=== PATIENT | male | born 1980 | race Caucasian/White ===

== ENCOUNTER 2023-02-08 15:49 | Emergency (ER) | payer OTHER, SELFPAY ==
--- NOTE | ~2023-02-08 | CT_ITS ---
EXAMINATION: CT abdomen pelvis wo con DATE: 02/08/2023 16:51 INDICATION: Right flank pain, right lower quadrant pain and dysuria. Elevated lipase. TECHNIQUE: Computed tomography (CT) of the abdomen and pelvis was performed without intravenous contr ast. Automated exposure control and iterative reconstruction technique were employed. The dose-length product was 986.10 mGy-cm. COMPARISON: None FINDINGS: Lung bases are clear. Heart size is normal. No pericardial or pleural effusion. Small amount of focal hepatic steatosis at the ligamentum teres. Gallbladder, spleen, pancreas, bilateral adrenal glands a nd left kidney are normal. No left-sided urolithiasis. There is 304 mm stone at the right ureterovesi cular junction with mild right hydroureter without hydronephrosis. Bowels including the appendix are normal. Partially decompressed bladder is unremarkable. No free intraperitoneal gas or fluid. No path ologically enlarged abdominal or pelvic lymphadenopathy. Moderate-sized bilateral fat-containing ingu inal hernias. Mild degenerative skeletal changes in the spine and at both hips. IMPRESSION: 1. Thousand 4 mm stone at the right ureterovesicular junction with mild right hydroureter but without hydronephrosis. 2. Moderate-sized bilateral fat-containing inguinal hernias. Reviewed, dictated and finalized at location A. IMPRESSION: 1. Thousand 4 mm stone at the right ureterovesicular junction with mild right h ydroureter but without hydronephrosis. 2. Moderate-sized bilateral fat-containing inguinal hernias.
--- NOTE | ~2023-02-08 | XR_ITS ---
EXAM: XR abdomen/kub 1V DATE: 02/08/2023 17:50 HISTORY: 3-4mm R UVJ stone . COMPARISON: CT abdomen and pelvis, same date. FINDINGS: Clear lung bases. Normal bowel gas pattern. No organomegaly. 4 mm calcification along the right lateral aspect of the urinary bladder likely corresponding to the previously detected stone. Re gional bones and soft tissues normal for age. IMPRESSION: 4 mm right distal ureteral/UVJ stone. Reviewed, dictated and finalized at location K.
[2023-02-08 15:54] VITALS: BP 160/93; PULSE 79; RESP 20; TEMP 36.3; O2SAT 99
[2023-02-08 16:25] LABS: Basophils Percent Auto 0.4 % (0.2-1.2); Eosinophils Absolute Auto 0.1 K/mm3 (0-0.3); Eosinophils Percent Auto 1.1 % (0-4.4); Hematocrit 42.9 % (42.0-52.0); Hemoglobin 14.4 g/dL (14.0-18.0); Immature Granulocyte Absolute 0.03 K/mm3 (0.00-0.031); Immature Granulocyte Percent A 0.3 % (0-0.5); Lymphocytes Absolute Auto 2.42 K/mm3 (0.9-3.2); Lymphocytes Percent Auto 23.6 % (18.3-44.2); Mean Corpuscular HGB Conc 33.6 g/dl (32-36); Mean Corpuscular Hemoglobin 31.1 pg (26-34); Mean Corpuscular Volume 92.7 fl (80-100); Mean Platelet Volume 9.8 fl (7.4-10.4); Monocytes Absolute Auto 0.5 K/mm3 (0.1-0.6); Neutrophils Absolute Auto 7.2 K/mm3 (1.3-6.7); Neutrophils Percent Auto 69.6 % (45.5-73.1); Platelet Count Result 266 k/mm3 (150-375); Red Blood Count 4.63 M/mm3 (4.6-6.20); Red Cell Distribution Width 12.8 % (11.5-14.5); White Blood Count 10.3 K/mm3 (4.5-10.0)
[2023-02-08 16:34] LABS: Alanine Aminotransferase 36 U/L (6-50); Anion Gap 9 mmol/L (8-16); Aspartate Amino Transferase 34 U/L (17-59); Bilirubin,Total 0.8 mg/dL (0.2-1.3); Blood Urea Nitrogen 21 mg/dL (9-20); Calcium 9.2 mg/dL (8.4-10.2); Carbon Dioxide 29 mmol/L (22-30); Chloride 101 mmol/L (98-107); Estimated CRCL calculation 128 ml/min; Estimated Glomerular Filt Rate > 60; Glucose 102 mg/dL (65-110); Potassium 3.4 mmol/L (3.4-5.0); Sodium 139 mmol/L (137-145)
[2023-02-08 16:35] LABS: Albumin Level 4.5 g/dL (3.5-5.1); Alkaline Phosphatase 106 U/L (38-126); Lipase 401 U/L (23-300)
[2023-02-08 16:35] LABS: Appearance Urine Clear (Clear); Bilirubin Urine Negative (Negative); Blood Urine Negative (Negative); Color Urine Yellow (Yellow); Glucose Urine UA Negative (Negative); Ketones Urine Negative (Negative); Leukocyte Esterase Ur Negative LEU/UL (Negative); Nitrate Urine Negative (Negative); Protein Urine Negative (Negative); Specific Grav Ur 1.023 (1.001-1.035); pH Urine 5.5 (5.0-9.0)
[2023-02-08 16:37] LABS: Add Urine Microscopic? NO
--- NOTE | 2023-02-08 16:46 | ED.ABDPAIN ---
HPI - Abdominal Pain General Chief Complaint: Abdominal Pain Stated Complaint: flank Time Seen by Provider: 02/08/23 16:03 Source: patient Mode of arrival: ambulatory Limitations: no limitations History of Present Illness HPI narrative: Patient is a 43-year-old male who presents to the ED with report of right flank pain. Patient reports the pain began last night around 5 PM and was constant and severe until he was able to fall asleep around 11 PM. Patient states he has had similar pain in the past, however last night's episode was much more severe. Pain radiated around to his right sided abdomen and down to his right groin. Patient reported having nausea and vomiting associated with the pain, as well as difficulty urinating/dysuria. He states he was unable to urinate normally until this morning. He denies having any flank or abdominal pain today. Denies any testicular pain or swelling. Denied any hematuria, chest pain, shortness of breath, fevers. Denies known history of kidney stones, but does report family history of this. Related Data Allergies Allergy/AdvReac Type Severity Reaction Status Date / Time No Known Allergies Allergy Verified 02/08/23 15:56 Review of Systems Review of Systems: CONSTITUTIONAL: Denies fever, chills, or sweats. CARDIOVASCULAR: Denies chest pain. RESPIRATORY: Denies dyspnea. GASTROINTESTINAL: See HPI. GENITOURINARY: See HPI. MUSCULOSKELETAL: See HPI. NEUROLOGIC: Denies headache, numbness, or weakness. All systems reviewed & are unremarkable except as noted in HPI and below Exam Narrative: GENERAL: Well appearing, obese with BMI of 30.4, non-toxic, in no acute distress. HEAD: Normocephalic, atraumatic. NECK: Supple. No adenopathy, no masses. RESPIRATORY: Airway patent, respirations nonlabored. Clear to auscultation bilaterally, no rales, rhonchi, wheezing. CARDIOVASCULAR: Regular rate and rhythm without murmurs, rubs, or gallops. Peripheral pulses 2+ and equal bilaterally. ABDOMINAL: Soft, no significant tenderness throughout abdomen, nondistended, no hepatosplenomegaly. Normoactive BS. No CVA tenderness to percussion. MUSCULOSKELETAL: Moves all extremities. Strength/ROM intact without gross deformities. Very mild tenderness to right lumbosacral region. SKIN: Warm, dry, normal color. No rashes. NEURO: A&O X3. Speech clear. Cranial nerves II-XII grossly intact. Steady gait. No ataxic movements. PSYCHIATRIC: Appropriate mood and affect. Normal interaction. Course Vital Signs Vital signs: Vital Signs Temperature 97.3 F L 02/08/23 15:54 Pulse Rate 79 02/08/23 15:54 Respiratory Rate 20 02/08/23 15:54 Blood Pressure 160/93 H 02/08/23 15:54 Pulse Oximetry 99 02/08/23 15:54 Oxygen Delivery Room Air 02/08/23 15:54 Temperature 97.3 F L 02/08/23 15:54 Pulse Rate 79 02/08/23 15:54 Respiratory Rate 20 02/08/23 15:54 Blood Pressure 160/93 H 02/08/23 15:54 Pulse Oximetry 99 02/08/23 15:54 Oxygen Delivery Room Air 02/08/23 15:54 MDM - Abdominal Pain MDM Narrative Medical decision making narrative: Patient presented to ED with episode of right flank and right-sided abdominal pain that occurred last night, improved today. Asymptomatic by the time of my evaluation. Vitals stable. CBC with leukocytosis of 10.3, otherwise unremarkable. CMP unremarkable. Stable kidney function. Lipase minimally elevated at 401. Patient given 1L of fluids. Urine without signs of hematuria or infection. CT scan of abdomen pelvis obtained and showing 3 to 4 mm right UVJ stone with mild right hydroureter, no hydronephrosis. Also showed adalid fat-containing inguinal hernias. No comment on pancreatitis. Patient denies any upper abdominal pain. He denies previous history of pancreatitis. He does not drink alcohol. Denies any groin pain or bulges. KUB obtained and visualized stone. Patient was updated on imaging findings and plan for discharge home with outpatient urology
[2023-02-08] MEDS: SODIUM CHLORIDE 0.9% IV 1,000 ML 999 ML IV CONT (17:25)
[2023-02-08] MEDS: TAMSULOSIN HCL 0.4 MG CAPSULE PO (18:16)
[2023-02-08 18:29] VITALS: BP 165/105; PULSE 57
== END 2023-02-08 18:37 | disposition home or self-care (01) ==
PROVIDERS: Emergency Provider Physician Assistant
DX: N20.1 Calculus of ureter (principal); N13.4 Hydroureter; K40.20 Bilateral inguinal hernia, without obstruction or gangrene, not specified as recurrent
CPT/HCPCS: 36415; 74018; 74176; 80053; 81003; 83690; 85025; 96360; 99284; A9270; J7030

== ENCOUNTER → 2023-02-21 14:29 | Outpatient (CLI) | payer OTHER, SELFPAY ==
--- NOTE | ~2023-02-21 | XR_ITS ---
EXAMINATION: XR abdomen/kub 1V INDICATION: Right ureteral stone follow-up TECHNIQUE: Supine views of the abdomen were obtained on 2 radiographs. COMPARISON: 02/08/2023 FINDINGS: There is a 4 mm calcification at the expected location of the right ureterovesicular juncti on. The bowel gas pattern is normal. The lung bases are clear. IMPRESSION: 1. Possible persistent right ureterovesicular junction stone. Reviewed, dictated and finalized at location B.
== END ==
PROVIDERS: PCP Urology; Visit Provider Urology
DX: N20.1 Calculus of ureter (principal)
CPT/HCPCS: 74018

== ENCOUNTER 2023-03-01 02:39 | Day surgery (SDC) | payer OTHER, SELFPAY ==
--- NOTE | 2023-02-26 13:52 | PC.NURSE ---
Report to the Outpatient Waiting Room, entrance under the green pavilion located off [facility], at time 1100 on date 03/01/23. Planned Procedure Time: 1300. Time changes happen often and if your time is changed the preop area will call you the afternoon before. - You and your visitor will be asked to self-screen and do not enter if you have any COVID symptoms. - A mask is optional within the hospital at this time. Patients may have clear liquids (water, carbonated beverages, clear teas, apple juice) until 3 hours prior to surgery with a maximum of 20 ounces. 1000 - No food from midnight until time of surgery - Infants may have breast milk until 4 hours before surgery, formula 6 hours prior to surgery. - Children will be allowed to drink immediately following surgery. If applicable, please bring a bottle or sippy cup to assist with drinking. Juice, water, soda, and popsicles are readily available. For infants on formula, please bring formula the day of surgery. Pacifiers are allowed. Take the following medications with a SIP of water the morning of surgery: none DO NOT STOP ANY OF YOUR OTHER PRESCRIPTION MEDICATIONS PRIOR TO SURGERY ?EXCEPT THE FOLLOWING Medications to discontinue per physician vitamins & supplements Date to take last dose 02/26/23 Please no make-up, nail citizen of [place], hairspray, perfume, deodorant, or body powder the day of surgery. No jewelry (including any body piercings) or valuables the day of surgery, leave them at home. Please take a shower or bath the night before, or the morning of, surgery with an antibacterial soap. Wear comfortable, loose fitting clothing. Children are encouraged to wear pajamas. - Jewelry must be removed prior to entering the operating room. Rings and piercings that are not removed may be cut off. - The hospital will not accept responsibility for valuables. - Please leave all valuables, including medications, at home the day of surgery. If you are going home after surgery, a licensed concrete pile driver operator must drive you home. - NO public transportation without another adult if you receive anesthesia. - We recommend that an adult stay with you for 24 hours following discharge. - We also recommend that you do not drive, make important decision, drink alcoholic beverages, or take any drugs that were not prescribed by your health care provider for at least 24 hours after your discharge time. For Pediatric surgeries, we recommend two adults accompany the child home. Follow any additional instructions given to you from your surgeon. If you or anyone in your household have experienced Covid symptoms in the past week, please notify your surgeon or the nurse liaison at the phone number below for possible testing. Telephone instructions given to Patient- Deejay Haynes and asked if any additional questions and then verbalized understanding. Patient advised to call surgeon office or pre surgery nurse liaison [phone] if any additional questions.
[2023-02-26 13:58] VITALS: BMI 32.9
[2023-03-01] VITALS (9 sets, daily range): BP systolic 138–165; BP diastolic 80–97; PULSE 64–82; RESP 14–20; TEMP 36.2–36.4; O2SAT 95–100
--- NOTE | ~2023-03-01 | XR_ITS ---
EXAMINATION: XR fluoroscopy no charge DATE: 03/01/2023 12:20 CDT INDICATION: STONE EXTRACTION . TECHNIQUE: 2 fluoroscopic images of the pelvis were obtained during stone extraction performed by the surgeon. I was not present in the operating room. Fluoroscopy exposure time was 7.1 seconds. Air Ker ma 3.17 mGy. DAP [id number] mGym2. COMPARISON: X-ray abdomen 02/21/2023 FINDINGS: There is wire access into the right collecting system. No abnormality in the post extraction view. IMPRESSION: Fluoroscopic documentation of stone extraction. Please refer to the operative note for complete proce dural details . Reviewed, dictated and finalized at location K. IMPRESSION: Fluoroscopic documentation of stone extraction. Please refer to the operative n ote for complete procedural details .
--- NOTE | 2023-03-01 04:45 | WPDHPUPDATE1 ---
History and Physical Update Update Date/Time: 03/01/23 04:45 History and Physical has been reviewed, including an updated exam of the patient. There are NO changes in the patient's condition. Risks, benefits, and alternatives have been discussed and questions answered. Patient agrees to proceed with procedure.
[2023-03-01] MEDS: LACTATED RINGERS 1,000 ML 30 ML IV CONT (11:25)
--- NOTE | 2023-03-01 11:44 | P.PNAN_ITS ---
Anes - Initial Pre Proc Eval Procedure: Operation Date: 03/01/23 13:00 Proposed Procedures p Cystoscopy, Right Ureteroscopy, Right Stone Extraction, Possible Right Retrograde Pyelogram, Possible Right Stent Placement, Possible Holmium Laser Lithotripsy - Jordan Engle MD Date/Time: 03/01/23 11:44 Surgeon: Jordan Engle MD Pre Op Diagnosis: Rt Ureteral Stone Patient Data Age: 43 Gender: M Height: 1.7 m Weight: 93 kg Last Vital Signs Temp 97.5 F L 03/01/23 11:10 Pulse 64 03/01/23 11:10 Resp 18 03/01/23 11:10 BP 156/85 H 03/01/23 11:10 Pulse Ox 100 03/01/23 11:10 O2 Del Method Room Air 03/01/23 11:10 Allergies Allergy/AdvReac Type Severity Reaction Status Date / Time No Known Allergies Allergy Verified 03/01/23 11:19 Home Medications Medication Instructions Recorded Confirmed Type Adults Multivitamin 1 tablet PO DAILY 02/26/23 02/26/23 History Patient hx anesthesia problems: none Family hx anesthesia problems: none Results Review: All pre-operative results and documents have been reviewed as part of the pre- operative evaluation. [facility] Social History Social History Years smoked: 16 Smoking status: Former smoker Spiritual care concerns: No Anes - Eval Final PreProcedure Day of Procedure 03/01/23 11:44 Patient weight: obese Heart: regular rate and rhythm Lungs: clear to auscultation Airway: Mallampati scale class II Neurological: alert and oriented Last oral intake: >/= 8 hours ASA classification: II Emergent: no Anesthetic plan: proceed Anesthesia type and monitoring: general LMA and standard monitoring Results Review: All pre-operative results and documents have been reviewed as part of the pre- operative evaluation. Informed Consent: The patient's anesthetic plan and its attendant risks and benefits were discussed with the patient/family/POA. Questions were solicited and answers provided to the satisfaction of the patient/family/POA.
[2023-03-01] MEDS: ceFAZolin 2 GM/D5W 50 ML 2 GM/50 ML BAG IVPB (12:07)
[2023-03-01] MEDS: LIDOCAINE HCL 2% GEL UROJET 10 ML PKG MUCOUS MEM (12:18)
[2023-03-01] MEDS: KETOROLAC 30 MG/ML VIAL (*BKC) IV PUSH (12:37)
--- NOTE | 2023-03-01 12:44 | W.PM.PROC2 ---
Procedure Note - Detailed Date of Procedure 03/01/23 Pre-op Diagnosis Rt Ureteral Stone Post-op Diagnosis Same Procedure Performed Cystoscopy, right ureteroscopy with laser lithotripsy, stone extraction. Surgeon Jordan Engle MD Anesthesia General Description of Procedure Patient is brought to the operative suite was prepped draped in routine sterile fashion while in dorsal lithotomy position. 2% xylocaine jelly was introduced intraurethrally and systemic sedation is administered per the anesthesia department. He has a fossa navicular/meatal stenosis which I dilated to 22 F with Patric sounds. Ureteroscopy was undertaken with a 19 F rigid cystoscope. There was no other urethral stricture and he has minimal prostatic hyperplasia. Bladder mucosa is normal. There was no intravesical foreign body neoplasm. As a single orthotopic ureteral orifice bilaterally. A 0.035 in glidewire to the is advanced into his right renal pelvis and the distal ureter was dilated with an 8 F 10 F dilator. Ureteroscopy was undertaken with a short tapered semi-rigid ureteral scope. His 5 mm stone is identified. Made a simple attempt a extracting it with a 1.9 F disposable basket but could remove it intact. I used a 200 micron holmium laser fiber to dust the stone. All particles removed without disposable stone basket. Because of the ease of this manipulation I opted not to place ureteral stent. Scopes and wires removed he was taken recovery room in good condition. Drains No Pathology Yes Complications No immediate complications Condition Stable
== END 2023-03-01 14:16 | disposition home or self-care (01) ==
PROVIDERS: Visit Provider Urology
PROC: (CPT 52352; principal; 2023-03-01 13:00)
DX: N20.1 Calculus of ureter (principal); E66.9 Obesity, unspecified; Z87.891 Personal history of nicotine dependence; Z68.32 Body mass index [BMI] 32.0-32.9, adult
CPT/HCPCS: 52353; 82365; 88300; 99199; C1769; J0690; J1100; J1885; J2250; J2405; J2704; J3010; J7120